=== PATIENT | female | born 1980 | race Caucasian/White ===

== ENCOUNTER 2019-08-06 17:24 | Emergency (ER) | payer OTHER ==
[2019-08-06 17:48] VITALS: BP 111/82; PULSE 96; TEMP 98; BMI 23.8
== END 2019-08-06 18:56 | disposition left against medical advice (07) ==
LOC: FER 17:24
DX: Z53.21 Procedure and treatment not carried out due to patient leaving prior to being seen by health care provider (principal)
CPT/HCPCS: 99282-25